=== PATIENT | male | born 1970 | race Caucasian/White ===

== ENCOUNTER 2019-04-03 09:55 | Emergency (ER) | payer BC, OTHER | END 2019-04-03 10:39 | disposition home or self-care (01) | LOC: NAV ERS 09:55 | DX: S61.217A Laceration without foreign body of left little finger without damage to nail, initial encounter (principal); Z87.891 Personal history of nicotine dependence; W26.8XXA Contact with other sharp object(s), not elsewhere classified, initial encounter | CPT/HCPCS: 99001; 99282 ==

== ENCOUNTER 2021-05-10 00:02 | Emergency (ER) | payer BC, MEDICAID, OTHER, SELFPAY | END 2021-05-10 00:40 | disposition home or self-care (01) | LOC: NAV ERS 00:02 | DX: S05.11XA Contusion of eyeball and orbital tissues, right eye, initial encounter (principal); S80.12XA Contusion of left lower leg, initial encounter; S00.411A Abrasion of right ear, initial encounter; Y04.8XXA Assault by other bodily force, initial encounter; F17.200 Nicotine dependence, unspecified, uncomplicated | CPT/HCPCS: 99284 ==